=== PATIENT | female | born 1980 | race Caucasian/White ===

== ENCOUNTER → 2018-06-21 | Outpatient (CLI) | payer OTHER ==
--- NOTE | 2018-06-25 15:30 | MM ---
Reason for exam: clinical finding. Baseline mammogram. Indicated problem(s): pain in the left breast. Physical Findings: Nurse did not find any significant physical abnormalities on exam. [facility] Diagnostic Mammo w CAD JUAN DIEGO Bilateral CC and MLO view(s) were taken. The breast tissue is heterogeneously dense. This may lower the sensitivity of mammography. No discrete abnormality. There is occational benign-appearing round bilateral breast calcifications. These results were verbally communicated with the patient and result sheet given to the patient on 06/21/18. ASSESSMENT: Benign, BI-RAD 2 RECOMMENDATION: Clinical management of the left breast. The left breast pain. Routine screening mammogram of both breasts at age 42.
--- NOTE | 2018-06-25 15:32 | USB ---
US Breast LT Left complete breast ultrasound includes all four quadrants, the retroareolar region and axilla. Finding demonstrates No significant abnormality visualized in the left axilla. ASSESSMENT: Negative, BI-RAD 1 RECOMMENDATION: Clinical management of the left breast. Breast pain Routine screening mammogram of both breasts at age 42.
== END ==
LOC: RADMAMWWP 07:40
PROVIDERS: ATTEND Obstetrics & Gynecology
DX: N64.4 Mastodynia (principal)
CPT/HCPCS: 77066

== ENCOUNTER → 2018-06-30 | Outpatient (CLI) | payer OTHER ==
[2018-06-30 13:40] VITALS: BP 119/82; PULSE 72; RESP 18; TEMP 98.2; BMI 28.4
--- NOTE | 2018-06-30 14:27 | P.GSHP ---
History of Present Illness H&P Date: 06/30/18 Chief Complaint: left breast ,axilla pain Iliana is a 38-year-old white female who presents with a complaint of cyclical left breast superior aspect and left axillary discomfort. She has noted this for the past several months. It appears to be related to the time of ovulation , with a repeat occurrence just before her periods start. The first episode occurred at a time when she was coughing as she had a significant chest cold. It should be noted that she had a bilateral mammogram on which is felt to be benign BIRADS 2, and additionally she had an ultrasound of the left breast on the same date which was felt to be benign as well. She is not noticed any new masses or lumps in her breasts. She has had 5 children and breast-fed all 5. Her youngest is 2-1/2 and she stopped breast-feeding approximately 1 year ago. She still has some bilateral residual milky discharge but this is not unusual for her and this is decreased in amount. She has not had any history of any trauma or any infection of the breast. The patient does drinks several cups of coffee per day, she does not drink tea or soda, she does not eat chocolate on a regular basis. She does not smoke and is not exposed to secondhand smoke. Hormonal history: Menarche: 18 Pregnancies: 5, 5 children, patient breast-fed all 5 babies, first born at the age of 27 Periods are regular BCP: none hormones: none Family history: paternal grandmother: esophageal cancer maternal grandfather: prostate cancer Past surgical history: 5 C-sections Medical history: Negative Social history: Smoking: Negative, smoked for 1 year at the age of 21 Alcohol: Occasional/monthly drugs: none - Constitutional Constitutional: Denies chills, Denies fever - EENT Comment: wears glasses migrains at times Eyes: denies blurred vision, denies pain Ears: deny: decreased hearing, tinnitus Ears, nose, mouth and throat: Reports headache, Denies sore throat - Breasts Breasts: bilateral: as per HPI - Cardiovascular Cardiovascular: Denies chest pain, Denies shortness of breath - Respiratory Respiratory: Denies cough, Denies 7 - Gastrointestinal Gastrointestinal: Denies abdominal pain, Denies diarrhea, Denies nausea, Denies vomiting - Genitourinary (Female) Genitourinary: Denies dysuria, Denies hematuria - Menstruation Menstruation: Reports period normal - Musculoskeletal Musculoskeletal: Denies myalgias - Integumentary Comment: Eczema on her hands Integumentary: Denies pruritus, Denies rash - Neurological Neurological: Denies numbness, Denies weakness - Psychiatric Psychiatric: Denies anxiety, Denies depression - Endocrine Comment: gestational diabetes Endocrine: Denies fatigue, Denies weight change - Hematologic/Lymphatic Comment: none - Allergic/Immunologic Allergic/Immunologic: Reports seasonal allergies Past Medical History Past Medical History: No Reported History Additional Past Medical History / Comment(s): 5 sections with gestational diabetes with the last 4 History of Any Multi-Drug Resistant Organisms: None Reported Past Surgical History: Section, Tubal Ligation Additional Past Surgical History / Comment(s): 5 sections Past Anesthesia/Blood Transfusion Reactions: No Reported Reaction Past Psychological History: No Psychological Hx Reported Smoking Status: Never smoker Past Alcohol Use History: None Reported Past Drug Use History: None Reported - Past Family History Mother Family Medical History: Diabetes Mellitus Additional Family Medical History / Comment(s): Type 1 Father Family Medical History: Diabetes Mellitus Additional Family Medical History / Comment(s): Type 2 Medications and Allergies Home Medications Medication Instructions Recorded Confirmed Type Fel-Mumk-Ljaaw Acid 1 tab PO DAILY 02/22/14 06/30/18 History [-U Capsule (formulary)] Calcium Carbonate [Calcium] 600 mg PO DAILY 06/30/18 06/30/18 History Cholecalciferol (Vitamin D3) 2,000 unit PO DAILY 06/30/18 06/30/18 History [Vitamin D3] Allergies Allergy/AdvReac Type Severity Reaction Status Date / Time codeine Allergy Shortness Verified 06/30/18 13:24 of breath Surgical - Exam Vital Signs Temp Pulse Resp BP Pulse Ox 98.2 F 72 18 119/82 99 06/30/18 13:32 06/30/18 13:32 06/30/18 13:32 06/30/18 13:32 06/30/18 13:32 - General well developed, well nourished, no distress - Eyes normal ocular movement - ENT no hearing loss, no congestion - Neck no masses, trachea midline - Respiratory normal respiratory effort, clear to auscultation - Cardiovascular Rhythm: regular Heart Sounds: normal: S1, S2 - Abdomen Abdomen: soft - Integumentary normal turgor - Neurologic no disoriented, no combative - Musculoskeletal normal gait, normal posture - Psychiatric oriented to time, oriented to person, oriented to place, speech is normal, memory intact breast exam: right breast: Multi-positional exam no dominant masses or nodules of concern Right axilla: No adenopathy of concern Left breast: Multi-positional exam no dominant masses or nodules of concern Left axilla: No adenopathy of concern Examination of the breast revealed the following nevi which are somewhat dark and of concern 1. Between the breast 2. Left breast upper inner aspect 3. Left breast inner lower aspect 4. Left axilla Results mammogram and ultrasound reviewed Assessment and Plan Assessment: Impression: 1. Cyclical left breast pain/probably homronally related 2. Left breast slightly larger than right breast with increased left axillary breast tissue 3. Skin nevi as noted 4. Radiographs of the breast did not reveal any lesions of concern Plan: 1. Excision of nevi 2. diet modification 3. [place] oil 4. Close surveillance with patient keeping track of the time and location of her breast pain We have discussed the fact that her breast pain appears to be cyclical in nature and probably has some hormonally related components to it. Additionally she does drink coffee daily and she is going to stop her caffeine consumption. We have also discussed that [place] oil will sometimes help alleviate breast pain. She is going to utilize [place] oil 1500 mg BID. She will keep a chart as to the discomfort in her breast and share this with me on a future visit. She has been given a booklet by Martha Strong which has been reviewed with her and is called Solving the Mystery of breast pain. CC: Dr. Gorman
== END ==
LOC: WWCWWP 12:52
PROVIDERS: ATTEND Surgery
DX: Z53.9 Procedure and treatment not carried out, unspecified reason (principal)

== ENCOUNTER → 2018-08-25 | Outpatient (CLI) | payer OTHER ==
--- NOTE | 2018-08-25 10:58 | P.PCN ---
Date of Procedure: 08/25/18 Preoperative Diagnosis: Skin lesions of concern Postoperative Diagnosis: Same Procedure(s) Performed: Excision of 2 skin lesions Anesthesia: local Surgeon: Virgen Sanchez Estimated Blood Loss (ml): 1 Pathology: other (Skin lesion left axilla, skin lesion inferior breast) Condition: stable Disposition: same day Indications for Procedure: Skin lesion which are dark and of some concern Operative Findings: Skin lesions Description of Procedure: The patient was taken to the procedure room. The area of concern in the left axilla and inferior inner aspect of the left breast were prepped in a sterile fashion. This was done after informed consent was obtained and a timeout was performed. The areas were prepped using Betadine. 1% lidocaine was used to anesthetize the areas of concern. Wide excision of each area was performed. Incision was carried through the skin and into the subcutaneous tissue at both sites. Each site was approximately 1 cm in size. Following removal of the lesions the skin was closed using nylon suture. The axillary lesion was removed first and then the lesion inferior inner aspect of the left breast. Patient tolerated procedure in stable condition. The specimens were sent to pathology. The patient tolerated the procedure in stable condition.
== END ==
LOC: WWCWWP 09:56
PROVIDERS: ATTEND Surgery
DX: D24.2 Benign neoplasm of left breast (principal); D22.5 Melanocytic nevi of trunk
CPT/HCPCS: 88305

== ENCOUNTER → 2018-09-06 | Outpatient (CLI) | payer OTHER ==
[2018-09-06 13:50] VITALS: BP 126/65; PULSE 70; RESP 18; TEMP 97.6; BMI 28.3
--- NOTE | 2018-09-07 14:55 | P.PN ---
Progress Note - Text Progress Note Date: 09/06/18 Patient presented for suture removal. Patient had no complaints. Incisions clean and dry. Pathology benign left axilla and left inferior breast Sutures removed without any difficulty Patient to follow up for excision of additional nevi in the near future cc: Kareem Vazquez
== END | disposition home or self-care (01) ==
LOC: WWCWWP 11:47
PROVIDERS: ATTEND Surgery
DX: Z53.9 Procedure and treatment not carried out, unspecified reason (principal)